=== PATIENT | male | born 1995 | race Caucasian/White ===

== ENCOUNTER 2019-11-13 08:48 | Emergency (ER) | payer BC ==
[~2019-11-13] VITALS: Ht 188 cm; Wt 74.8 kg
== END 2019-11-13 13:41 | disposition home or self-care (01) ==
LOC: ER 08:48
DX: S52.135A Nondisplaced fracture of neck of left radius, initial encounter for closed fracture (principal); W18.39XA Other fall on same level, initial encounter; Y93.89 Activity, other specified; Y92.832 Beach as the place of occurrence of the external cause; Y99.8 Other external cause status

== ENCOUNTER → 2019-11-20 | Outpatient (CLI) | payer BC | END | disposition home or self-care (01) | LOC: RAD 13:34 | DX: S52.135A Nondisplaced fracture of neck of left radius, initial encounter for closed fracture (principal) ==

== ENCOUNTER 2019-12-18 08:55 | Outpatient (CLI) | payer BC | END 2019-12-18 09:00 | disposition home or self-care (01) | LOC: RAD 08:55 | DX: M25.522 Pain in left elbow (principal) ==

== ENCOUNTER 2020-06-22 13:33 | Emergency (ER) | payer BC ==
[~2020-06-22] VITALS: Ht 188 cm; Wt 77.1 kg
== END 2020-06-22 19:50 | disposition home or self-care (01) ==
LOC: ER 13:33
DX: A08.8 Other specified intestinal infections (principal); E86.0 Dehydration; Z20.828 Contact with and (suspected) exposure to other viral communicable diseases